=== PATIENT | female | born 1940 | race Caucasian/White ===

== ENCOUNTER → 2023-06-21 09:12 | Outpatient (REF) | payer OTHER, SELFPAY | LOC: RAD 09:12 | PROVIDERS: ATTENDING PHYSICIAN Internal Medicine Cardiovascular Disease | DX: I89.0 Lymphedema, not elsewhere classified (principal) | CPT/HCPCS: 97163; 97535 ==

== ENCOUNTER → 2024-04-24 16:05 | Outpatient (REF) | payer OTHER, SELFPAY | LOC: RCS 16:05 | PROVIDERS: ATTENDING PHYSICIAN Family Medicine | DX: R53.83 Other fatigue (principal); R01.1 Cardiac murmur, unspecified | CPT/HCPCS: 93306 ==

== ENCOUNTER → 2024-06-07 17:37 | Outpatient (REF) | payer OTHER, SELFPAY | LOC: MRI 17:37 | PROVIDERS: ATTENDING PHYSICIAN Internal Medicine Gastroenterology; FAMILY PHYSICIAN Family Medicine | DX: K74.60 Unspecified cirrhosis of liver (principal); R63.4 Abnormal weight loss; K52.9 Noninfective gastroenteritis and colitis, unspecified | CPT/HCPCS: 74183; A9581 ==

== ENCOUNTER 2024-07-05 06:25 | Day surgery (SDC) | payer OTHER, SELFPAY ==
[2024-06-26 13:13] VITALS: BMI 34.8
[2024-06-26 13:34] LABS: % Basophils 0.4 % (0-2); % Eosinophils 4.9 % (0-6); % Immature Granulocytes 0.3 % (0-0.5); % Lymphocytes 24.6 % (20.5-51.1); % Monocytes 10.4 % (1.7-9.3); % Neutrophils 59.4 % (42.2-75.2); Absolute Eosinophils 0.3 10^3/uL (0-0.7); Absolute Lymphocytes 1.7 10^3/uL (1.2-3.4); Absolute Monocytes 0.7 10^3/uL (0.1-0.6); Absolute Neutrophils 4.1 10^3/uL (1.4-6.5); Hematocrit 29.5 % (37.0-47.0); Hemoglobin 9.9 g/dL (12.0-16.0); Mean Corp Hgb Conc. 33.6 g/dL (33.0-37.0); Mean Corpuscular Hgb 29.4 pg (27.0-31.0); Mean Corpuscular Volume 87.5 fL (81.0-99.0); Mean Platelet Volume 9.6 fL (7.4-10.4); Nucleated Red Blood Cells % 0 %; Platelet Count 154 10^3/uL (130-400); Red Blood Cell Count 3.37 10^6/uL (4.20-5.40); Red Cell Dist. Width 14.3 % (11.5-14.5); White Blood Cell Count 6.9 10^3/uL (4.8-10.8)
[2024-06-26 14:48] LABS: ALT (SGPT) 16 U/L (0-35); AST (SGOT) 28 U/L (14-36); Albumin 3.8 g/dl (3.5-5.0); Alkaline Phosphatase 92 U/L (38-126); Blood Urea Nitrogen 21 mg/dl (7-17); Calcium 9.4 mg/dl (8.4-10.2); Carbon Dioxide 25 mmol/L (22-30); Chloride 106 mmol/L (98-107); Estimated Creatinine Clearance 40 ml/min; Glucose 103 mg/dl (70-99); Potassium 4.1 mmol/L (3.5-5.1); Sodium 142 mmol/L (135-145); Total Bilirubin 0.7 mg/dl (0.2-1.3); Total Protein 6.4 g/dl (6.3-8.2); eGFR 45.19
--- NOTE | 2024-07-04 11:08 | CONSULT.STRU ---
Consultation
-
Date/Time Consultation Requested: 07/05/2024
Date/Time Consultation Performed: 07/05/2024
Requesting Provider: Jairo Cohen MD
Performing Provider: LEANDER Valladares
Reason for Consultation: /TAVR
Patient History
Physicians
Family Physician: Piero Drake DO
Outpatient Storage Garage Manager: Yaritza Cartre MD
Primary Storage Garage Manager: Yaritza Carter MD
History of Present Illness
Ms. Rivera is a very pleasant 83 yof that presents to the cardiac catheterization lab for TAVR evaluation. Echocardiogram from 04/24/2024 is notable for EF 65-70%, AV P/M 97/55, BRISSA 0.6-0.7, pk sherie 4.8, moderate AI, mild MS, MV MG 7, mild MR, no TR.
From a symptomatology standpoint, patient describes LORENZO. Discussed the pathophysiology and treatment options of including SAVR and TAVR. Explained the evaluation process comprised of lab work, staged CT scan, CT surgical consult, and a heart team
discussion. TAVR booklet, appointments, prescriptions, and contact information given to patient. Allowed for and answered questions at bedside.
Past Medical History
Past Medical History: GERD, HTN, Hypothyroidism, NIDDM, Renal Insufficiency, Valvular Disease (Aortic stenosis, mitral stenosis) and Other (lymphedema, cirrhosis, portal hypertension, vitamin D deficiency, gout, Storm's esophagus, pelvic floor
dysfunction)
Past Surgical History
Past Surgical History: Cholecystectomy
Dental History
Dr. Salazar--UTD
Family History
Mother: at Age (76) and Cause of (cancer)
Social History
Alcohol: None
Drug: None
Tobacco: Non-Smoker
Personal:
Living: Alone
Allergies
Allergy/AdvReac Type Severity Reaction Status Date / Time
Penicillins Allergy DIARRHEA Verified 06/21/24 12:11
Home Medications
�Medication �Instructions �Recorded �Confirmed �Type
acetaminophen 325 mg tablet 650 mg PO PRN PRN pain 01/26/21 06/21/24 History
allopurinol 100 mg tablet 100 mg PO HS Gout 01/26/21 06/21/24 History
levothyroxine 75 mcg tablet 75 mcg PO DAILY Thyroid 01/26/21 06/21/24 History
amitriptyline 100 mg tablet 100 mg PO HS 06/21/24 06/21/24 History
aspirin 81 mg tablet,delayed 81 mg PO DAILY 06/21/24 06/21/24 History
release
furosemide 40 mg tablet 40 mg PO DAILY 06/21/24 06/21/24 History
losartan 50 mg tablet 50 mg PO HS 06/21/24 06/21/24 History
nebivolol 5 mg tablet 5 mg PO HS 06/21/24 06/21/24 History
STS%
STS %: 5.1
Review of Systems
-
History Source: Patient
General: Reports Fatigue
HEENT: Reports No Symptoms
Respiratory: Reports LORENZO
Cardiac: Reports No Symptoms
Abdomen/GI: Reports No Symptoms
: Reports No Symptoms
Musculoskeletal: Reports No Symptoms
Skin: Reports No Symptoms
Neurological: Reports No Symptoms
Vascular: Reports No Symptoms
Physical Exam
Vital Signs
Actual Weight 91.8 kg 06/26/24 13:13
Body Mass Index (BMI) 34.8 06/26/24 13:13
Labs
06/26/24 13:22
06/26/24 13:22
Diagnostic Studies
Echocardiogram 04/24/2024:
CONCLUSIONS
Normal left ventricular size and systolic function.
LV ejection fraction is 65-70% .
Severe aortic stenosis. Peak gradient 91 mmHg mean gradient 55 mmHg.
Moderate aortic regurgitation.
Compared to the previous report 05/24/2020 3 aortic stenosis has increased in
severity. Previously reported as moderate to severe with a peak gradient of 55
mmHg and a mean gradient of 37 mmHg.
Cardiac catheterization 07/05/2024:
CONCLUSIONS:
1. non-obstructive coronary artery disease in a right dominant system
2. severely elevated left sided filling pressure with severe, predominantly post-capillary pulmonary hypertension
3. systemic hypertension with normal cardiac output
RECOMMENDATIONS:
1. Expectant management after cardiac catheterization via right approach
2. Augmentation of diuresis with lasix 40 PO BID (from 40 PO qD), labs in 1 week
3. Proceed with TAVR
Exam
General: Well Developed, Well Nourished and No Apparent Distress
HEENT: Normocephalic and EOMI
Neck: Trachea Midline
Respiratory: Clear
Cardiac: Regular Rhythm and Murmur (IV/ LEANNE)
GI: Soft, Non Tender and Non Distended
Rectal: Deferred by Provider
Skin: Warm
Neuro: Awake, Alert, Oriented and AO x 3
Extremities: Lower Level Edema (lymphedema)
Lymph: Lymphadenopathy
Psych: Calm
Assessment / Plan
-
Aortic stenosis
Continue with TAVR evaluation
Trend creatinine after each contrast administration (Rx given)
Staged TAVR CT scan d/t RI (Chest CT 07/19)
CT surgical consult (TT 07/25)
Frailty testing and Kccq12 at consult
Continue aspirin
Dental clearance
Heart team discussion
Data Reviewed
-
Sanding Supervisor: Report Reviewed by me and Discussed with Physician
Echo: Report Reviewed by me and Discussed with Physician
Labs: Labs Reviewed by me
Old Records: Reviewed (Dr. Carter's office note)
Total Time Spent with Patient (in minutes): 45
[2024-07-05] VITALS (8 sets, daily range): BP systolic 135–182; BP diastolic 49–137; BMI 35.6
[2024-07-05] MEDS: LOW STRENGTH ASPIRIN 324 MG PO (06:55)
--- NOTE | 2024-07-05 08:34 | ITS.CL.CATH ---
Ferry Boat Captain - Catheterization
Cardiac Catheterization
Procedure Report:
CARDIAC CATHETERIZATION REPORT
Date of Procedure: 07/05/2024
Referring: Dr. Rebeka Carter
Indication: severe symptomatic aortic stenosis
PROCEDURE:
1. Right heart catheterization.
2. Coronary angiography.
ACCESS:
6 Ethiopian right radial artery.
5 Ethiopian right femoral vein.
CATHETERS:
1. 5 Ethiopian balloon wedge.
2. 6 Ethiopian JR4
3. 6 Ethiopian JL3.5
HEMODYNAMIC DATA
AO 171/65 (mean 111) mmHg
RA 14 mmHg
RV 76/12 (EDP 21) mmHg
PA 75/33 (mean 52) mmHg
PCWP 35 with v-waves to 50 mmHg
SaO2 93.9%
SvO2 70.7%
CO/CI 5.9/3.0 L/min/m2
PVR 2.9 Wood Units
SVR 1318 dsc*-5
CORONARY ANGIOGRAPHY
Dominance: right
LM: normal
LAD: gives rise to a moderate caliber D1, several small caliber diagonal branches, and multiple septal branches before wrapping around the apex. There is mild non-obstructive disease.
LCx: large vessel giving rise to a moderate caliber marginal branch and large LPL branch. There is mild non-obstructive disease.
RCA: gives rise to a moderate caliber RPDA. There is mild non-obstructive disease.
Closure Device: TR band
Radiation dose (mGy): 252.08
DAP (cm2.Gy): 19.167
Fluoroscopy time (minutes): 4.3
CONCLUSIONS:
1. non-obstructive coronary artery disease in a right dominant system
2. severely elevated left sided filling pressure with severe, predominantly post-capillary pulmonary hypertension
3. systemic hypertension with normal cardiac output
RECOMMENDATIONS:
1. Expectant management after cardiac catheterization via right approach
2. Augmentation of diuresis with lasix 40 PO BID (from 40 PO qD), labs in 1 week
3. Proceed with TAVR
Copy to: Dr. Rebeka Carter
Jairo Cohen MD, PhD
== END 2024-07-05 12:05 | disposition home or self-care (01) ==
LOC: CATH 06:25
PROVIDERS: ATTENDING PHYSICIAN Student in an Organized Health Care Education/Training Program; FAMILY PHYSICIAN Family Medicine; OTHER PHYSICIAN Internal Medicine Cardiovascular Disease
DX: I35.0 Nonrheumatic aortic (valve) stenosis (principal); R06.02 Shortness of breath; I25.10 Atherosclerotic heart disease of native coronary artery without angina pectoris; I10 Essential (primary) hypertension; E03.9 Hypothyroidism, unspecified; K21.9 Gastro-esophageal reflux disease without esophagitis; K74.00 Hepatic fibrosis, unspecified; E66.9 Obesity, unspecified; Z68.34 Body mass index [BMI] 34.0-34.9, adult; Z79.82 Long term (current) use of aspirin
CPT/HCPCS: 36415; 80053; 85025; 93005; 93456; C1894; Q9967

== ENCOUNTER 2024-07-19 07:41 | Outpatient (RCR) | payer OTHER, SELFPAY ==
[2024-07-19] MEDS: NSS 500 IV (08:09)
[2024-07-19 09:16] VITALS: BP 114/64
== END 2024-07-30 23:59 | disposition home or self-care (01) ==
LOC: OID 07:41
PROVIDERS: ATTENDING PHYSICIAN Nurse Practitioner Acute Care; FAMILY PHYSICIAN Family Medicine
DX: I35.0 Nonrheumatic aortic (valve) stenosis (principal); I08.0 Rheumatic disorders of both mitral and aortic valves; Z92.89 Personal history of other medical treatment
CPT/HCPCS: 96360; 96361

== ENCOUNTER → 2024-07-19 08:27 | Outpatient (REF) | payer OTHER, SELFPAY | LOC: RAD 08:27 | PROVIDERS: ATTENDING PHYSICIAN Nurse Practitioner Acute Care | DX: I35.0 Nonrheumatic aortic (valve) stenosis (principal) | CPT/HCPCS: 75572; Q9967 ==

== ENCOUNTER 2024-08-03 08:24 | Outpatient (RCR) | payer OTHER, SELFPAY ==
[2024-08-03] MEDS: NSS 500 IV (08:51)
[2024-08-03 09:06] VITALS: BP 138/42
== END 2024-08-06 09:20 | disposition home or self-care (01) ==
LOC: OID 08:24
PROVIDERS: ATTENDING PHYSICIAN Nurse Practitioner Acute Care; FAMILY PHYSICIAN Family Medicine
DX: I35.0 Nonrheumatic aortic (valve) stenosis (principal); I08.0 Rheumatic disorders of both mitral and aortic valves; Z92.89 Personal history of other medical treatment
CPT/HCPCS: 96360; 96361

== ENCOUNTER 2024-09-06 05:25 | Inpatient (IN) | payer OTHER, SELFPAY ==
--- NOTE | 2024-08-31 08:49 | HPS.HSE ---
Family Physician
-
Family Physician: Piero Drake
Chief Complaint
-
LORENZO
History of Present Illness
Ms. Rivera is a very pleasant 83 yof that presents to the cardiac catheterization lab for TAVR evaluation. Echocardiogram from 04/24/2024 is notable for EF 65-70%, AV P/M 97/55, BRISSA 0.6-0.7, pk sherie 4.8, moderate AI, mild MS, MV MG 7, mild MR, no TR.
From a symptomatology standpoint, patient describes LORENZO. Discussed the pathophysiology and treatment options of including SAVR and TAVR. She has been evaluated by the heart team and recommended for TF TAVR utilizing a 26mm Evolut via (R) TF
femoral approach.
Assessed patient in preadmission testing and confirmed medication list. She will take her 81 mg aspirin and 75 mcg Levothyroxine prior to 529 arrival to the [facility]. The risks of the procedure were discussed in consult with Dr. Faith including
stroke, ppm, and vascular injury, patient verbalized understanding. Informed Ms. Rivera that she will receive a phone call from the heart team on Tuesday (09/05) to confirm time and location of arrival. Allowed for and answered questions.
Medical History
Past Medical History
Past Medical History: Reports GERD, HTN, Hypothyroidism, NIDDM, Valvular Disease (aortic stenosis) and Psychiatric (depression)
Additional Past Medical History:
cryptogenic cirrhosis, vitamin D deficiency, Storm's esophagus, gout, myocarditis in the setting of a viral infection, aortic atheroma, lymphedema, portal HTN, pelvic floor dysfunction
Past Surgical History: Reports Cholecystectomy
Social History
Tobacco: Non-smoker
Alcohol: None
Drug: None
Personal:
Living: Alone
Employment: Retired
Family History
Family History: Cancer
Allergies / Home Medications
Allergies reflects when Allergies were last updated in [employer]
NKDA
Home Medications with original date entered in [employer]
Allopurinol 100 MG Tablet take 1 tablet by oral route every day
Amitriptyline HCl 100 MG Tablet TAKE 1 TABLET BY MOUTH ONCE DAILY
Bystolic(Nebivolol HCl) 5 MG Tablet 1 tablet Orally Once a day
Ecotrin Low Strength 81 MG Take one tablet by mouth daily Oral
Furosemide 40 MG Tablet take 1 tablet by mouth once daily
Levothyroxine Sodium 75 MCG Tablet TAKE 1 TABLET ONCE DAILY
Losartan Potassium 50 MG Tablet 1 tablet Orally Once a day
Allergy/Medication List:
nkda
Review of Systems
-
History Source: Patient
Constitutional: Reports No Symptoms
EENT: Reports No Symptoms
Respiratory: Reports Trouble Breathing (LORENZO)
Cardiac: Reports No Symptoms
Abdomen/GI: Reports No Symptoms
: Reports No Symptoms
Musculoskeletal: Reports No Symptoms
Skin: Reports No Symptoms
Neurological: Reports Dizzy (c/o dizziness today and states she has not eaten yet.)
Psych: Reports No Symptoms and Calm
Physical Exam
Physical Exam
General: Well Developed, Well Nourished, No Apparent Distress and Comfortable
HEENT: Moist mucous membranes
Respiratory: Clear
Cardiac: Regular Rhythm and Murmur (III/ LEANNE)
Breast: Deferred by me
GI: Soft and Non Tender
Rectal: Deferred by Provider
Musculoskeletal: Edema, Left Lower Extremity (lymphedema) and Edema, Right Lower Extremity (lymphedema)
Skin: Warm and Dry
Neuro: Awake, Alert, Oriented and AO x 3
Psych: Calm
Data Reviewed
-
CT Scan: Report Reviewed by me and Discussed with Physician (Reviewed with the structural hear team)
Medical Tests (Nuc Med, Echo, EKG etc): Report Reviewed by me and Discussed with Physician (Echocardiogram and cardiac catheterization reviewed with the heart team)
Lab Data: Labs Reviewed by me
Old Records: Reviewed
Impression/Plan
-
IMPRESSION/PLAN:
Aortic stenosis
TF TAVR planned utilizing an Evolut heart valve on 09/06/2024
Continue 81 mg aspirin daily
POD#1/#30 Echocardiogram
Cardiac rehab consult.
Labs
-
Labs:
WBC 6.4 10^3/uL (4.8-10.8) 08/31/24 12:23
RBC 3.50 10^6/uL (4.20-5.40) L 08/31/24 12:23
Hgb 10.1 g/dL (12.0-16.0) L 08/31/24 12:23
Hct 30.7 % (37.0-47.0) L 08/31/24 12:23
Plt Count 141 10^3/uL (130-400) 08/31/24 12:23
Sodium 141 mmol/L (135-145) 08/31/24 12:23
Potassium 4.5 mmol/L (3.5-5.1) 08/31/24 12:23
Chloride 107 mmol/L (98-107) 08/31/24 12:23
Carbon Dioxide 23 mmol/L (22-30) 08/31/24 12:23
BUN 38 mg/dl (7-17) H 08/31/24 12:23
Creatinine 1.2 mg/dL (0.6-1.0) H 08/31/24 12:23
eGFR 45.19 08/31/24 12:23
Glucose 106 mg/dl (70-99) H 08/31/24 12:23
Calcium 9.7 mg/dl (8.4-10.2) 08/31/24 12:23
Cby-W-Lfaqramuzhp Pept 1200 pg/ml 08/31/24 12:23
Albumin 3.8 g/dl (3.5-5.0) 08/31/24 12:23
[2024-08-31 12:11] VITALS: BMI 34.2
[2024-08-31 12:47] LABS: % Basophils 0.6 % (0-2); % Eosinophils 5.5 % (0-6); % Immature Granulocytes 0.5 % (0-0.5); % Lymphocytes 26.2 % (20.5-51.1); % Monocytes 9.9 % (1.7-9.3); % Neutrophils 57.3 % (42.2-75.2); Absolute Eosinophils 0.4 10^3/uL (0-0.7); Absolute Lymphocytes 1.7 10^3/uL (1.2-3.4); Absolute Monocytes 0.6 10^3/uL (0.1-0.6); Absolute Neutrophils 3.7 10^3/uL (1.4-6.5); Hematocrit 30.7 % (37.0-47.0); Hemoglobin 10.1 g/dL (12.0-16.0); Mean Corp Hgb Conc. 32.9 g/dL (33.0-37.0); Mean Corpuscular Hgb 28.9 pg (27.0-31.0); Mean Corpuscular Volume 87.7 fL (81.0-99.0); Mean Platelet Volume 10.3 fL (7.4-10.4); Nucleated Red Blood Cells % 0 %; Platelet Count 141 10^3/uL (130-400); Red Cell Dist. Width 14.2 % (11.5-14.5); White Blood Cell Count 6.4 10^3/uL (4.8-10.8)
[2024-08-31 13:02] LABS: ALT (SGPT) 17 U/L (0-35); AST (SGOT) 26 U/L (14-36); Albumin 3.8 g/dl (3.5-5.0); Alkaline Phosphatase 85 U/L (38-126); Blood Urea Nitrogen 38 mg/dl (7-17); Calcium 9.7 mg/dl (8.4-10.2); Carbon Dioxide 23 mmol/L (22-30); Chloride 107 mmol/L (98-107); Estimated Creatinine Clearance 40 ml/min; Glucose 106 mg/dl (70-99); Potassium 4.5 mmol/L (3.5-5.1); Sodium 141 mmol/L (135-145); Total Bilirubin 0.5 mg/dl (0.2-1.3); Total Protein 6.6 g/dl (6.3-8.2); eGFR 45.19
[2024-08-31 13:09] LABS: NT-proBNP 1200 pg/ml
[2024-08-31 13:11] LABS: INR 1.03; PT 13.3 Sec (11.4-14.6)
[2024-08-31 13:12] LABS: APTT 31.3 Sec (23.4-35.0)
[2024-08-31 13:50] LABS: Urine Albumin 2+ (Neg - Trace); Urine Bilirubin Negative (Negative); Urine Character Clear (Clear); Urine Color Yellow; Urine Glucose Negative (Negative); Urine Ketone Negative (Negative); Urine Leukocyte 2+ (Negative); Urine Nitrite Negative (Negative); Urine Occult Blood Trace (Negative); Urine Specific Gravity 1.015 (<1.030); Urine Urobilinogen Negative (Neg - 1+)
[2024-08-31 14:02] LABS: Glycohemoglobin (HgbA1c) 5.2 % (4.0-5.6)
[2024-08-31 14:30] LABS: Urine Mucus Few; Urine Squamous Cell >30 /LPF (Few)
[2024-08-31 14:31] LABS: Urine Amorphous Seen
[2024-08-31 14:32] LABS: Urine Red Blood Cell 0-2 /HPF (0-2)
[2024-08-31 14:33] LABS: Urine White Cell 70-80 /HPF (0-5)
[2024-08-31 14:34] LABS: Urine Bacteria Few (Negative)
--- NOTE | 2024-08-31 15:49 | CM ---
spoke to pt in PAT's we discussed preop TAVR teaching including driving and lifting restrictions. she is prev indep, lives with alone in a 2 story home with 1 step to enter. she uses a cane. she has the TAVR educ book, soap and instructions, she is
agreeable to a ff/u visit from the ct transitional care nurses after dc. however, she was thinking about going to her daughters home in [facility] abut may stay at her own home for a week first. she will let us know when she comes in for her
procedure. cm role explained and all questions answered. plan is for TAVR 08/30.
[2024-09-06] VITALS (29 sets, daily range): BP systolic 87–185; BP diastolic 32–158; BMI 34.2
--- NOTE | 2024-09-06 06:15 | PTCARENOTE ---
received patient from home at approx 0530. AAOx3. ambulating independently. daughter, Gris, at the bedside. clipped and CHG wipes. IV placed in R AC 20G. SR on tele. + murmur. +1 LE edema/doppler pulses present. NPO since midnight. questions
answered. oriented patient to room.
Left upper arm BP- 132/79. Right upper arm BP 179/44. notified Kenn DUENAS.
[2024-09-06 08:18] LABS: ACT-LR - POC 319 Seconds (116-155)
[2024-09-06 08:32] LABS: ACT-LR - POC 316 Seconds (116-155)
--- NOTE | 2024-09-06 08:55 | W.CVOR.SURPR ---
CVOR Surgeon Immed Pre Op
-
I have examined this patient prior to performance of the scheduled procedure.
The patient's condition is unchanged from the time of the dictated/written History and
Physical and the patient is able to undergo the scheduled procedure.
--- NOTE | 2024-09-06 08:55 | W.IMMPOSTOP ---
Addendum entered and electronically signed by Gautam Dsouza MD 09/06/24 09:20:
[id number]
Original Note:
Surgical Immed Post Op Note
-
CARDIAC SURGERY OPERATIVE NOTE:
Preoperative Dx:
Severe aortic stenosis (P/M: 91/55, BRISSA 0.6)
Moderate aortic insufficiency
Mild MR/MS (mean gradient 7mmHg)
Hx of viral myocarditis
Hypothyroidism
DM II
Venous insufficiency & lymphedema
CKD - preoperative creatinine 1.2
Hx of cirrhosis w/ portal HTN
Hx of Storm's esophagus
Hx of gout
Depression
Postoperative Dx:
Same
Mjcky-bn-ceczfou combined systolic/diastolic CHF w/ preserved LVEF w/ elevated LVEDP: 30mmHg
Procedures:
1) R CFV access w/ U/S and fluoroscopic guidance, micropuncture technique, 6Fr sheath placement
2) R HADOOP ADMINISTRATOR access w/ tactile, U/S, and fluoroscopic guidance, micropuncture technique, limited angiography, 6Fr sheath placement
3) Placement of temporary RV pacing wire under fluoroscopic guidance, threshold testing
4) Placement of pigtail catheter in NCC w/ limited aortography & confirmation of cusp-overlap views
5) L HADOOP ADMINISTRATOR access w/ tactile, U/S, and fluoroscopic guidance, micropuncture technique, limited angiography, 8Fr dilator placement
6) Perclose x 2 to L HADOOP ADMINISTRATOR, 8Fr sheath placement
7) Serial dilation of L ileofemoral system w/ placement of 14Fr COOK sheath
8) Wire purchase across stenotic AV (AL-1, soft-tip straight, LVEDP assessment, table J-wire, pigtail catheter placement, lunderquist wire)
9) Fluoroscopic inspection of TAVR valve
10) L TF TAVR w/ placement of 26mm EVOLUT FX (no recaptures)
11) Post-TAVR aortography & TTE assessment (mild PVL; mean gradient 14mmHg)
12) Removal of valve delivery system & replacement of 14Fr COOK sheath; pigtail aided repositioning of lunderquist wire
13) Post-TAVR BAV (20 TRUE)
14) Completion TTE (resolution of PVL, mean gradient 7mmHg)
15) Exchange of lunderquist wire for table-J; removal of COOK sheath w/ L HADOOP ADMINISTRATOR mgmt w/ perclose sutures x 2; manual pressure
16) Completion L ileofemoral angiography
17) Removal of temporary pacing wire
18) Removal of R HADOOP ADMINISTRATOR 6Fr sheath w/ mgmt w/ 6Fr angioseal; manual pressure
19) Removal of R CFV 6Fr sheath w/ manual pressure
Knit Goods Mender:
Dr. Jairo Cohen
Cardiac Surgeon:
Dr. Gautam Dsouza
Anesthesia:
MAC w/ local to B/L groins
Implants:
26mm EVOLUT FX valve; SN: [id number]
Perclose x 2
6Fr angioseal x 1
Complications:
No significant; new BBB w/o pauses/bradycardia/pacing requirements
Cath Data:
Start: 0745hrs, Deploy: 0822hrs, End: 0848hrs
FT: 13.8min, mGy: 629.65, DAP: 56.4426, Contrast: 114
Post-TTE: mean gradient 7mmHg, no sig AI/PVL
Condition:
Stable/guarded to recovery
--- NOTE | 2024-09-06 08:57 | W.PN.UPDATE ---
Update Note
Progress Note Update
Reviewed Ms. Rivera with the heart team in the preTAVR SDM meeting and confirmed a 26mm Evolut via TF access. Patient will resume aspirin post TAVR. LVEDP 30mmHg. #26mm Evolut (serial#[id number]) successfully deployed via left transfemoral access. Post
implant MG 7mmHg.
--- NOTE | 2024-09-06 09:35 | ITS.CL.TAVR ---
Hot Top Liner Helper - TAVR Report
TAVR PRocedure
Procedure Report:
TRANSCATHETER AORTIC VALVE REPLACEMENT REPORT
Date: 09/04/2025
Referring physician: Dr. Rebeka Carter
Preop diagnosis: severe aortic valve stenosis
Procedure: transcatheter aortic valve replacement (TAVR) using a #26 Medtronic Evolut Fx
Operators: Jairo Cohen MD, PhD (relations manager); Gautam Dsouza MD (surgeon)
Anesthesia: conscious sedation was provided by the anesthesia staff.
Estimated blood loss: negligible
Complications: none
Condition: stable
Procedure:
The patient was brought to the cardiac catheterization laboratory technician after consent and was prepped and draped in standard sterile fashion. Right common femoral vein and common femoral artery access were obtained with micropuncture technique with verification of arterial
stick site by hand injection angiography. 6F sheaths were placed. Left common femoral artery access was obtained with micropuncture technique with verification of arterial stick site by hand injection angiography. The tract was dilated with a 8F
sheath, followed by placement of two Perclose sutures and replacement of the 8F sheath. A temporary pacing wire was advanced through the right femoral vein and into the right ventricle. The pacemaker demonstrated good capture and was set to back up.
A 5Fr pigtail catheter was advanced through the right femoral sheath and seated in the non-coronary cusp. Cusp overlap view was confirmed by angiography.
An AL-1 catheter was advanced through the 8F sheath, the J wire was exchanged for a Lunderquist wire and the catheter and the 8 Fr sheath were removed. A 12F dilator was advanced over the Lunderquist wire followed by placement of a 14F Cook sheath.
The CoreValve was prepared on the back table and then inspected under fluoroscopy. Infolding of the valve was at the 3rd node and the tabs were properly positioned. The AL-1 catheter was advanced over the Lunderquist wire which was then exchanged
for the straight wire and used to cross the valve and the AL-1 catheter was prolapsed into the left ventricle. The straight wire was exchanged for an exchange length J-wire and the AL-1 catheter was subsequently exchanged for a 5 Fr angled pigtail
catheter. LVEDP was measured at 30 mmHg. The double curve Lunderquist wire was advanced through the pigtail catheter and placed in the apex of the left ventricle. The pigtail catheter was removed.
The Cook sheath was removed and the in-line sheath was advanced over the Lunderquist wire through the LCFA into the descending aorta. The Evolute was then advanced over the aortic arch and into the left ventricle. In the cusp overlap view, the valve
was slowly deployed to the point of flowering. Injection confirmed ideal depth. The patient was rapidly paced at 120 bpm to maintain SBP <80 mmHg as the valve was deployed through the rumble strips to 80%. Injection confirmed a non-coronary cusp
implant depth of 1 mm. The image intensifier was taken to the TURKMEN view and parallax removed. Injection in this view confirmed left coronary cusp implant depth of 3 mm. The decision was made to proceed with full deployment. The delivery handle was
slowly rotated counter clockwise until both paddles were released from the superior aspect of the valve. The Lunderquist wire was partially withdrawn to lift the nosecone of the valve delivery device. The delivery device was withdrawn to the
descending aorta and re-assembled. The pigtail was removed from behind the valve with a wire and repositioned at the valve outflow. Transthoracic echocardiogram showed mild paravalvular insufficiency with gradient 12 mmHg. Aortogram showed coronary
filling and good valve deployment but some constraint of the valve at the inflow in the LVOT. Decision was then made to proceed with post-dilation with a 20 mm True balloon.
The inline sheath was removed over the Lunderquist wire and replaced with the 14F sheath. A Pigtail was used to re-position the Lunderquist wire in the LV apex. The True balloon was prepped and advanced across the valve and inflated under rapid
pacing at 180 bpm with full expansion. The balloon was rapidly deflated and removed. Angiography demonstrated improved valve expansion of the inflow. Repeat TTE demonstrated resolution of PVL and improvement of gradient to 7 mmHg. Hemostasis was
achieved using the two Perc-Close devices. Lower extremity angiography showed excellent hemostasis and good runoff without evidence perforation or extravasation. The pigtail catheter was removed over a J-wire and the right DEPARTMENT STORE MANAGER was closed using a 6Fr
Angioseal. The patient was noted to have a new left bundle branch block in sinus rhythm. There was no evidence of consistent pacing requirement. The temporary pacer was removed. The venous sheath was removed. Manual pressure was applied with good
hemostasis of the right venous access. The patient was taken to recovery in good condition.
Implant Depth
Non-Coronary (mm): 1 mm
Left Coronary (mm): 3 mm
Radiation
Dose (mGy): 629 mGy
DAP (cm2.Gy): 56.44
Fluoroscopy time (minutes): 13.8
TAVR Echo Gradient: 7 mmHg
LVEDP: 30 mmHg
Conclusions:
1. Successful placement of #26 Evolute Fx using a left percutaneous transfemoral approach with no acute complications
2. Acute on chronic heart failure with elevated filling pressures (LVEDP = 30 mmHg)
Signed: Dr. Jairo Cohen MD, PhD
Copy: Dr. Rebeka Carter MD
[2024-09-06] MEDS: LEVOPHED 250 IV (09:45)
[2024-09-06] MEDS: LASIX 20 MG IV (09:57)
[2024-09-06 10:15] LABS: Glucose - Point of Care 130 mg/dl (70-99)
--- NOTE | 2024-09-06 10:21 | CM ---
CM following for DC planning needs.
Patient in OR today for planned TAVR procedure.
DC plan is to return to home w/ CT Transitional Care RN versus stay temporarily with dtr. in [place], [place].
CM to follow for DC planning needs.
--- NOTE | 2024-09-06 11:26 | PTCARENOTE ---
Patient received from the laborer cutting tool. AO x3, sleepy, awakens easily. VSS, Levophed infusing per mar. B/L groins soft and dry, pedals with Doppler. Call esquivel in reach
[2024-09-06] MEDS: ASPIR LOW (ENTERIC COATED) PO (12:24)
[2024-09-06] MEDS: LASIX 40 MG PO (15:56)
[2024-09-06] MEDS: ANCEF 5 IV (15:57)
--- NOTE | 2024-09-06 16:09 | WOUNDNOTE ---
LEFT BREAST FOLD
--- NOTE | 2024-09-06 16:10 | WOUNDNOTE ---
[facility] RN note: Patient admitted for TAVR
See H&P for complete history.
PMH: HTN, liver cirrhosis, renal insufficiency, diabetes, ETOH.
Wound Location and type/assessment: Patient admitted with stage 2 gluteal fold likely from a combination of pressure and moisture, as patient states she sits a lot during the day. Antifungal appearing skin noted under left breast. Heels intact.
Appetite: States good
Pressure redistribution devices in place: Air cushion to chair, Centrella Max Air
Plan: Reviewed incontinence care, skin hygiene and pressure relief for patient who says she lives alone and provides own care. Air cushion added to chair. SPD called for Calazime lotion. Will recommend Miconazole powder for under left breast. RN
Dariel updated. Plan is for discharge tomorrow. Orders confirmed for PA, Murt and careplan updated. Will sign off.
--- NOTE | 2024-09-06 17:30 | PTCARENOTE ---
Pt oob to chair. 1 person assist to bathroom. b/l groin site dressing soft c/d/i.
[2024-09-06 17:33] LABS: Glucose - Point of Care 141 mg/dl (70-99)
[2024-09-06] MEDS: DESENEX/MITRAZOL/ZEASORB 1 APPLIC TOPICAL (19:55)
[2024-09-06] MEDS: ZYLOPRIM 100 MG PO (22:13)
[2024-09-06] MEDS: ELAVIL 100 MG PO (22:13)
[2024-09-06] MEDS: COZAAR 50 MG PO (22:13)
[2024-09-06] MEDS: MELATONIN 3 MG PO (22:13)
[2024-09-06] MEDS: REFRESH CELLUVISC GEL 1 DROPS OPHTH (22:13)
--- NOTE | 2024-09-06 23:00 | PTCARENOTE ---
Pt received start of shift, HR SR w/ BBB and slightly prolonged QT. Neuro WNL. B/l groin site dressings CDI. Areas soft, no hematomas. Doppler pedal pulses. Pt ambulating w assistance to bathroom, voiding clear yellow urine. Pt requesting melatonin
to help sleep, DURGA Hawk notified. Melatonin ordered and administered - see DEC.
[2024-09-07] VITALS (9 sets, daily range): BP systolic 142–169; BP diastolic 50–107; PULSE 72; O2SAT 96; BMI 33.8
[2024-09-07 03:25] LABS: Hematocrit 30.1 % (37.0-47.0); Hemoglobin 10.4 g/dL (12.0-16.0); Mean Corp Hgb Conc. 34.6 g/dL (33.0-37.0); Mean Corpuscular Hgb 29.8 pg (27.0-31.0); Mean Corpuscular Volume 86.2 fL (81.0-99.0); Mean Platelet Volume 10.1 fL (7.4-10.4); Platelet Count 154 10^3/uL (130-400); Red Blood Cell Count 3.49 10^6/uL (4.20-5.40); Red Cell Dist. Width 13.9 % (11.5-14.5); White Blood Cell Count 10.9 10^3/uL (4.8-10.8)
[2024-09-07 03:41] LABS: Blood Urea Nitrogen 37 mg/dl (7-17); Calcium 9.1 mg/dl (8.4-10.2); Carbon Dioxide 23 mmol/L (22-30); Chloride 103 mmol/L (98-107); Estimated Creatinine Clearance 36 ml/min; Glucose 135 mg/dl (70-99); Potassium 4.6 mmol/L (3.5-5.1); Sodium 138 mmol/L (135-145); eGFR 41.06
[2024-09-07] MEDS: SYNTHROID 75 MCG PO (05:44)
--- NOTE | 2024-09-07 06:25 | W.PN.CT ---
Today's Communication / Plan
-
-pod #1
-no issues overnight. C/o generalized weakness with walking. No focal deficits.
-hypertensive postop - got Cozaar, diuresed with 20 iv Lasix and 40 po (UO 850/3100 in 12/24 hrs)
-nsr 80s overnight. No suad or pauses
-new LBBB postop, has pre-existing 1st degree AVB- will hold Bystolic
-Echo today
-current meds (ASA, Cozaar, Lasix 40 bid)
-encourage IS, OOB
Assessment / Plan
-
- Severe symptomatic - s/p L TF TAVR w/ placement of 26mm EVOLUT FX (no recaptures), followed by Post-TAVR BAV (20 TRUE) on 09/06/24, pod #1
- Post-TTE: mean gradient 7mmHg, no sig AI/PVL
- Acute on chronic diastolic CHF
- Mild MR/MS (mean gradient 7mmHg)
- Hx of viral myocarditis
- Hypothyroidism
- DM II
- Venous insufficiency & lymphedema
- CKD 3A - preoperative creatinine 1.2
- Hx of cirrhosis w/ portal HTN
- Hx of Storm's esophagus
- Hx of gout
- Depression
- Pre-existing 1st degree AVB
- Acute postop new LBBB
Discussed patient care with: Nursing and Care Team
Subjective
Procedure
- s/p L TF TAVR w/ placement of 26mm EVOLUT FX (no recaptures), followed by Post-TAVR BAV (20 TRUE) on 09/06/24
-
Date of Service: September 07, 2024
Objective Data
-
PT 13.3 Sec (11.4-14.6) 08/31/24 12:23
INR 1.03 08/31/24 12:23
APTT 31.3 Sec (23.4-35.0) 08/31/24 12:23
Vital Signs
Vital Signs
Temp Pulse Resp BP Pulse Ox
98.4 F 77 20 175/59 96
09/06/24 22:13 09/06/24 22:15 09/06/24 22:13 09/06/24 22:13 09/06/24 22:13
CT Intake/Output/Weight
09/06/24 09/06/24 09/07/24
06:59 18:59 06:59
Intake Total 1100 / 1340 240 / 1340
Output Total 2250 / 2700 450 / 2700
Balance -1150 / -1360 -210 / -1360
SaO2: 96
Physical Exam
-
General: Awake and AOx3
Cardiovascular: Regular rate & rhythm, No Murmurs and No Rub
Respiratory: Decreased Breath Sounds
Incision: Other (groins are cdi, soft, nontender, no hematoma b/l)
Extremities: Edema +1 (chronic b/l. DPs by Doppler b/l)
Data Reviewed
-
Lab Results: Results Reviewed
Medications: Active Meds Reviewed
Chest X-Ray: Report Reviewed and Image Reviewed
ECG: Report Reviewed and Image Reviewed
--- NOTE | 2024-09-07 07:19 | W.PN.ANS.POP ---
Anesthesia Post Operative
- Anesthesia Post Op Note
Vital Signs Stable-See Nursing Note: Yes
Airway Patent: Yes
Adequate Pain Control: Yes
Change in Mental Status: No
Current Postoperative Nausea & Vomiting: No
Anesthesia Complications: No
General Anesthetic Recall: No
Unplanned Admission: No
Post Op Hydration Adequate: Yes
--- NOTE | 2024-09-07 08:09 | W.PN.CD ---
Today's Communication / Plan
-
TTE today
hold BB in setting of new LBBB
plan for home tomorrow with classroom monitor
Impression / Plan
-
Ms. Marmolejo is a 83 year old woman with past medical history of severe symptomatic s/p L TF TAVR with 26 mm Evolute Fx with post deployment BAV with 20 mm TRUE balloon. She developed new LBBB without signs of heart block. She is doing well POD #1.
Significant diuresis overnight to lasix. Feels well. Has not be out of bed yet. Tele with sinus and LBBB, no block.
# Severe s/p TAVR
- TTE today
- significant diuresis overnight to lasix, clear lungs on cxr this AM, hold further diuresis today
- ambulate, IS
# LBBB
- hold BB for now
- discharge tomorrow with classroom monitor
# HTN
- cont. losartan
- hold nebivolol (can resume outpatient if preferred to losartan after first outpatient appointment)
# CKD
- trend Cr
Physical Exam
Vital Signs/Labs
Vital Signs
Temp Pulse Resp BP Pulse Ox
37.4 C 81 20 142/68 98
09/07/24 07:48 09/07/24 03:00 09/07/24 07:48 09/07/24 02:34 09/07/24 07:48
09/06/24 09/07/24 09/08/24
06:59 06:59 06:59
Actual Weight 90.4 kg
09/07/24 02:46
09/07/24 02:46
PT 13.3 Sec (11.4-14.6) 08/31/24 12:23
INR 1.03 08/31/24 12:23
APTT 31.3 Sec (23.4-35.0) 08/31/24 12:23
11/01/24
12:23
[employer] Pept 1200
Physical Exam
Constitutional: No acute distress
Cardiovascular: Rhythm & rate is regular, Pedal edema is absent, JVD pressure is normal, Systolic murmur absent and Diastolic murmur absent
Respiratory: Respiratory effort normal and Lungs clear to auscul.
Neuro/Psych: AO x 3
Data Reviewed
-
Date of Service: September 07, 2024
Medical Decision Making: Reviewed Test Results
EKG: Tracing Personally Visualized and interpreted and Report Reviewed by me
X-Ray/CT/US/MRI/NUC/PET: Image Personally Visualized and interpreted and Report Reviewed by me
Labs: Labs Reviewed by me
[2024-09-07] MEDS: LASIX 40 MG PO (08:10)
[2024-09-07] MEDS: ASPIR LOW (ENTERIC COATED) 81 MG PO (08:10)
[2024-09-07] MEDS: DESENEX/MITRAZOL/ZEASORB 1 APPLIC TOPICAL ×2 (08:13→22:44)
--- NOTE | 2024-09-07 10:58 | CM ---
CM following for DC planning needs.
Met w/ patient at bedside. She feels well.
She plans to stay with her dtr. in [facility] temporarily upon DC. She is agreeable to a [facility] Transitional Care RN telephone call.
We reviewed follow up appointments.
Plan is for DC to home w/ dtr., no needs.
--- NOTE | 2024-09-07 12:44 | W.PN.UPDATE ---
Update Note
Progress Note Update
Reviewed Rhythmstar monitor with patient and her daughter, Gris. Went over how to apply, charge, report symptoms and return the monitor after the 14 day period. Allowed for and answered questions.
--- NOTE | 2024-09-07 13:04 | PN.CDI ---
Addendum entered and electronically signed by Yoni Murcia PA-C 09/07/24 13:55:
Pt with stage 2 gluteal fold secondary to pressure as pt reports she sits all day and not very ambulatory. Stage 2 was reported on admission prior to procedure.It was documented in nursing assessment.
Original Note:
CDI
- -
CDI:
Physician Documentation Request
Admit Date: 09/06/24 05:25
Dear Doctor Meet,
WOCN note 09/06 states 'Patient admitted with stage 2 gluteal fold likely from a combination of pressure and moisture, as patient states she sits a lot during the day.'
Physician documentation of the type and location of wounds is required for compliant documentation. Based on the above clinical findings and your assessment, please provide the following in your progress note:
1. Location of the ulcer/wound, including laterality.
2. Type (etiology) of ulcer/wound:
- Diabetic ulcer
- Traumatic wound
- Pressure (decubitus) ulcer
- Other
Use of terms such as suspected, likely, concern for, or probable (associated with a specific diagnosis that is being evaluated, monitored, or treated as if it exists) are acceptable and can be coded in the inpatient setting, when documented at the
time of discharge.
Thank you,
Carmelina Munson RN, BSN
CDI Specialist
tiger text
Please use your independent medical judgment in providing your response.
*Source: National Pressure Ulcer Advisory Panel (NPUAP)
--- NOTE | 2024-09-07 13:07 | PN.CDI ---
Addendum entered and electronically signed by Yoni Murcia PA-C 09/07/24 13:50:
Pt cxr this am showing atelectasis both lower lungs.
Encourage IS
OOB as tolerated
Original Note:
CDI
- -
CDI:
Physician Documentation Request
Admit Date: 09/06/24 05:25
Dear Doctor Meet,
The diagnosis of atelectasis was included in the signed chest xray 09/07.
'Mild patchy parenchymal opacity within the medial aspect of both lower lungs, left greater right, appearance highly suggestive of atelectasis.'
09/07 progress note states 'encourage IS, OOB'
Please indicate in your progress notes if you are in agreement that the above diagnosis is valid for this patient:
____ - Atelectasis is a valid diagnosis (Please include it in your progress notes)
____ - Atelectasis is not a valid diagnosis
____ - Other
Use of terms such as suspected, likely, concern for, or probable are acceptable for a diagnosis that is being evaluated, monitored or treated as if it exists and can be coded in the inpatient setting, when documented at the time of discharge.
Thank you,
Carmelina Munson RN, BSN
CDI Specialist
tiger text
Please use your independent medical judgment in providing your response.
--- NOTE | 2024-09-07 13:13 | PN.CDI ---
Addendum entered and electronically signed by Yoni Murcia PA-C 09/07/24 13:46:
Pt with acute on chronic combined systolic/diastolic heart failure
Original Note:
CDI
- -
CDI:
Physician Documentation Request
Admit Date: 09/06/24 05:25
Dear Doctor Meet,
09/06 OR report contains a postoperative diagnosis of 'Qmqie-dx-boigwyw combined systolic/diastolic congestive heart failure with preserved left ventricular ejection fraction with elevated left ventricular end diastolic pressure: 30 mmHg.'
Progress note 09/07 states 'Acute on chronic diastolic CHF'
In an attempt to clarify potentially conflicting documentation, please clarify type of CHF you are evaluating, treating or monitoring.
Type
Diastolic
Combined Systolic/Diastolic
Other
Use of terms such as suspected, likely, concern for, or probable (associated with a specific diagnosis that is being evaluated, monitored, or treated as if it exists) are acceptable and can be coded in the inpatient setting, when documented at the
time of discharge.
Thank you,
Carmelina Munson RN, BSN
CDI Specialist
tiger text
Please use your independent medical judgment in providing your response.
[2024-09-07] MEDS: ZYLOPRIM 100 MG PO (22:42)
[2024-09-07] MEDS: REFRESH CELLUVISC GEL 1 DROPS OPHTH (22:42)
[2024-09-07] MEDS: ELAVIL 100 MG PO (22:42)
[2024-09-07] MEDS: COZAAR 50 MG PO (22:44)
[2024-09-08] VITALS (9 sets, daily range): BP systolic 129–183; BP diastolic 53–65; PULSE 91; O2SAT 96–98; BMI 33.3
[2024-09-08] MEDS: SYNTHROID 75 MCG PO (04:23)
--- NOTE | 2024-09-08 05:57 | PTCARENOTE ---
Pt received at change of shift. NSR with BBB on tele with HR 70s. Pt AAOx3, Neuro intact. B/L groin sites c/d/i with no complications noted. Pedal pulses present with Doppler. No complaints of pain at this time. Pt ambulating with standby
assist and rolling walker. Plan of care regarding Rhythm star monitor upon discharge discussed and pt verbalizes understanding. Can make needs known. Call esquivel within reach.
--- NOTE | 2024-09-08 06:24 | W.PN.CT ---
Addendum entered and electronically signed by Gautam Dsouza MD 09/08/24 09:23:
I saw and examined the patient.
The PA's note was reviewed and I agree with the note.
Comment:
D/C home today
Original Note:
Today's Communication / Plan
-
-No major issues overnight. Hemodynamically and neurologically intact
-Kept another day to monitor d/t postop LBBB. No rhythm issues overnight
-Groin is C/D/I without significant hematoma
-Repeat echo yesterday, 09/07 showed a well seated TAVR, PG/MG 16/8 mmHg, trace AI, LVEF 55-60%. Mod-severe MR
-On ASA only
-F/U AM labs, BMP, received diuresis yesterday
-Home today with RhythmStar heart monitor
Assessment / Plan
-
- Severe symptomatic - s/p L TF TAVR w/ placement of 26mm EVOLUT FX (no recaptures), followed by Post-TAVR BAV (20 TRUE) on 09/06/24, pod #2
- Post-TTE: mean gradient 7mmHg, no sig AI/PVL
- Acute on chronic diastolic CHF
- Mild MR/MS (mean gradient 7mmHg)
- Hx of viral myocarditis
- Hypothyroidism
- DM II
- Venous insufficiency & lymphedema
- CKD 3A - preoperative creatinine 1.2
- Hx of cirrhosis w/ portal HTN
- Hx of Storm's esophagus
- Hx of gout
- Depression
- Pre-existing 1st degree AVB
- Acute postop new LBBB
Discussed patient care with: Cardiology, Nursing, Respiratory Therapy, Pharmacy and Care Team
Subjective
Procedure
- s/p L TF TAVR w/ placement of 26mm EVOLUT FX (no recaptures), followed by Post-TAVR BAV (20 TRUE) on 09/06/24
-
Date of Service: September 08, 2024
No c/o overnight. Denies CP/SOB
Objective Data
-
Lab Results
09/07/24 02:46
09/07/24 02:46
PT 13.3 Sec (11.4-14.6) 08/31/24 12:23
INR 1.03 08/31/24 12:23
APTT 31.3 Sec (23.4-35.0) 08/31/24 12:23
Vital Signs
Vital Signs
Temp Pulse Resp BP Pulse Ox
98.3 F 72 20 155/63 95
09/08/24 04:09 09/08/24 04:02 09/08/24 04:09 09/08/24 04:02 09/08/24 04:09
CT Intake/Output/Weight
09/07/24 09/07/24 09/08/24
06:59 18:59 06:59
Intake Total 240 / 1340
Output Total 850 / 3100
Balance -610 / -1760
SaO2: 95 (RA)
Physical Exam
-
General: Awake, Oriented and AOx3
Cardiovascular: Regular rate & rhythm, No Murmurs and No Rub
Respiratory: Decreased Breath Sounds
Incision: Clean, Dry, Intact and Dressing Intact
Extremities: No Edema
Data Reviewed
-
Lab Results: Results Reviewed
Medications: Active Meds Reviewed
Chest X-Ray: Report Reviewed and Image Reviewed
ECG: Report Reviewed and Image Reviewed
[2024-09-08] MEDS: DESENEX/MITRAZOL/ZEASORB 1 APPLIC TOPICAL (07:52)
[2024-09-08] MEDS: ASPIR LOW (ENTERIC COATED) 81 MG PO (07:53)
[2024-09-08 09:30] LABS: Blood Urea Nitrogen 41 mg/dl (7-17); Calcium 9.2 mg/dl (8.4-10.2); Carbon Dioxide 25 mmol/L (22-30); Chloride 103 mmol/L (98-107); Estimated Creatinine Clearance 36 ml/min; Glucose 124 mg/dl (70-99); Magnesium 1.9 mg/dl (1.6-2.3); Potassium 4.4 mmol/L (3.5-5.1); Sodium 137 mmol/L (135-145); eGFR 41.06
--- NOTE | 2024-09-08 10:45 | W.DCSUMMARY ---
Discharge Summary
Discharge Data
Date of Admission: 09/06/24
Date of Discharge: 09/08/24
-
Pending Results: No
Hospital Course
Patient was admitted electively and underwent left transfemoral transcatheter aortic valve replacement on Dr. Gautam Dsouza and Dr. Jairo Frazier. Please refer to their separately dictated operative reports for complete details. Postoperatively
patient progressed well. She did develop a new left bundle branch block which was evaluated by cardiology. They felt she would be safe to go home with a rhythm star monitor for further outpatient management of this. She otherwise did well and met
criteria for discharge on postoperative day number 1:02 day of rhythm monitoring. There was no significant changes. She did receive 1 dose of 20 mg of IV Lasix during her stay. Follow-up transthoracic echocardiogram showed a well-seated
transcatheter aortic valve with peak and mean gradients of 16 and 8 mmHg respectively. There was trace aortic insufficiency. I reviewed the discharge instructions with the patient in detail and answered her questions to her satisfaction prior to
her leaving today.
Please note this dictation was created using voice recognition software. Please excuse any phonetic or grammatical errors as a result.
Discharge Plan
-
Patient Disposition: Home (Routine Discharge)
Discharge Diagnosis/Procedures: - Severe symptomatic aortic stenosis-status post left transfemoral transcatheter aortic valve replacement with placement of 26mm EVOLUT FX (no recaptures), followed by balloon aortic valvuloplasty (20 TRUE) on 09/06/24
- Post-transthoracic echocardiogram: mean gradient 7mmHg, no significant aortic insufficiency/paravalvular leak
- Acute on chronic diastolic congestive heart failure
- Mild mitral regurgitation/mitral stenosis (mean gradient 7mmHg)
- History of of viral myocarditis
- Hypothyroidism
- Type 2 diabetes
- Venous insufficiency & lymphedema
- Chronic kidney disease stage 3A - preoperative creatinine 1.2
- History of cirrhosis with portal hypertension
- History of Storm's esophagus
- History of gout
- Depression
- Pre-existing 1st degree atrioventricular block
- Acute postoperative new left bundle branch block
Condition: Fair
Diet: Low Fat, Low Cholesterol and 2 Gram Sodium
Activity: As tolerated
Driving Restrictions: No driving for 1 week
Bathing Restrictions: OK to Shower
Others Tests: Your 30-day echocardiogram is scheduled for: 10/08/2024 @ 11:20 at [facility]
Other Services: Cardiac Rehab
Wound Care: No lotions, powders, or creams to puncture sites
Specialty Instructions: Weigh Daily- Call MD for wt gain/loss 3 lbs overnight/5 lbs in 1 week
Activity Restrictions/Additional Instructions:
Wound Care Instructions Sacrum- Clean with normal saline or soap and water. Apply small amount of Calazime to open area. Apply twice daily or as needed with continence care.
Left breast fold- Apply antifungal powder daily.
Change positions frequently, as tolerated
Use and air cushion or gel cushion in your chair
Keep the skin under your breasts dry
Referrals:
[facility] [Outside] - 11/01/24 1:00 pm
(Cardiac Rehab Orientation appointment is on 11/01/23 () at 1:00pm (as requested- call to move up if needed)
The Cardiac Rehab gym is located on the first floor of the [facility].)
Sandra Rucker CRNP [Specified Professional Personl] - 10/11/24 1:40 pm
Piero Drake DO [Family Provider] -
Prescriptions:
Continued
allopurinol 100 MG tablet
100 mg PO HS
levothyroxine 75 MCG tablet
75 mcg PO DAILY
acetaminophen 325 MG tablet
650 mg PO PRN PRN (Reason: pain)
losartan 50 mg Tablet
50 mg PO HS
aspirin 81 mg Tablet,Delayed Release (Dr/Ec)
81 mg PO DAILY
amitriptyline 100 mg Tablet
100 mg PO HS
furosemide 40 mg Tablet
40 mg PO BID Qty: 60 5RF
Held
nebivolol 5 mg Tablet
5 mg PO HS
Hold Instructions: hold until seen by your doctor
Discharge Orders:
Discharge Patient (As Directed); Ordered 09/08/24
Ordered By: Jalil Johnson
Care Plan Goals
Care Plan Goals:
Problem: Readiness for enhanced knowledge related to diagnosis and treatment plan
Goal: Understand your diagnosis and treatment plan needs, including medications if applicable.
Instructions: Know your diagnosis, underlying causes and treatment plan options, including medications if applicable. Consult with your health care team to learn about your diagnosis and treatment plan, including medications if applicable.
Discharge Date and Time
Print Language: SINHALA
--- NOTE | 2024-09-08 14:49 | PTCARENOTE ---
Patient discharged to home with daughter. IV and telemetry removed, showered before leaving. Placed Rhythm star monitor placed on patient, called customer service to verify that she is correctly set up. Srikanth set up on her phone and reviewed with
daughter and patient.Patient escorted to her daughter's car via wheelchair
== END 2024-09-08 14:53 | disposition home or self-care (01) | DRG 266 ==
LOC: IVU 05:25
PROVIDERS: Physician Assistant Surgical; ADMITTING PHYSICIAN Thoracic Surgery (Cardiothoracic Vascular Surgery); CONSULT PHYSICIAN Student in an Organized Health Care Education/Training Program; FAMILY PHYSICIAN Family Medicine; REFERRING PHYSICIAN Internal Medicine Cardiovascular Disease
PROC: 02RF38Z Replacement of Aortic Valve with Zooplastic Tissue, Percutaneous Approach (ICD-10-PCS; 2024-09-06)
DX: I35.0 Nonrheumatic aortic (valve) stenosis (principal); I50.43 Acute on chronic combined systolic (congestive) and diastolic (congestive) heart failure; K76.6 Portal hypertension; I13.0 Hypertensive heart and chronic kidney disease with heart failure and stage 1 through stage 4 chronic kidney disease, or unspecified chronic kidney disease; J98.11 Atelectasis; K21.9 Gastro-esophageal reflux disease without esophagitis; E03.9 Hypothyroidism, unspecified; F32.A Depression, unspecified; E55.9 Vitamin D deficiency, unspecified; K22.70 Barrett's esophagus without dysplasia; I87.2 Venous insufficiency (chronic) (peripheral); E11.22 Type 2 diabetes mellitus with diabetic chronic kidney disease; N18.31 Chronic kidney disease, stage 3a; I44.7 Left bundle-branch block, unspecified; K74.69 Other cirrhosis of liver; I44.0 Atrioventricular block, first degree; I34.0 Nonrheumatic mitral (valve) insufficiency; M10.9 Gout, unspecified; I89.0 Lymphedema, not elsewhere classified; L89.322 Pressure ulcer of left buttock, stage 2; L89.312 Pressure ulcer of right buttock, stage 2; Z79.899 Other long term (current) drug therapy
CPT/HCPCS: 93308; 33361; 36415; 71045; 71046; 80048; 80053; 81003; 81015; 82248; 82962; 83036; 83735; 83880; 85025; 85027; 85347; 85610; 85730; 86850; 86900; 86901; 86920; 87070; 87086; 93005; 93306; 93321; 93325; C1760; C1769; C1894; Q9967